=== PATIENT | male | born 1980 | race Caucasian/White ===

== ENCOUNTER 2020-06-16 07:51 | Emergency (ER) | payer BC, SELFPAY ==
[2020-06-16 08:04] VITALS: BP 122/64; PULSE 78; RESP 20; TEMP 36.6; O2SAT 99
--- NOTE | 2020-06-16 08:48 | ED.WOUNDLAC ---
HPI - Wound/Laceration General Chief Complaint: Wound/Laceration Stated Complaint: hand laceration Time Seen by Provider: 06/16/20 08:00 Source: patient and family Mode of arrival: ambulatory Limitations: no limitations History of Present Illness HPI narrative: 40-year-old with no major medical problems here with a complaint plaints of laceration to his left hand sustained half hour ago at home. Patient states that he was trying to cut a lot of wood with an ax and he accidentally hit himself. He denies any other injuries denies numbness or tingling sensation. Onset (ago): minute(s) (30) Extremity Location: Left: hand Place: home Patient tetanus UTD: No Context: accidental Associated symptoms: none Related Data Home Medications Medication Instructions Recorded Confirmed No Home Medications 06/16/20 06/16/20 Allergies Allergy/AdvReac Type Severity Reaction Status Date / Time No Known Allergies Allergy Verified 06/16/20 08:07 Review of Systems Review of Systems: All systems reviewed & are unremarkable except as noted in HPI and below Constitutional: Constitutional: Reports no additional constitutional complaints Eyes: Eyes: Reports no additional eye complaints ENT: Reports system reviewed and no additional complaints, except as documented Cardiovascular: Cardiovascular: Reports no additional cardiovascular complaints Respiratory: Respiratory: Reports no additional respiratory complaints Gastrointestinal: Gastrointestinal: Reports no additional gastrointestinal complaints Musculoskeletal: Musculoskeletal: Reports as per HPI Neurologic: Reports system reviewed and no additional complaints, except as documented PMFSH Social History Social History Gender identity (if verbalized by the patient): Male Exam Narrative: Exam Narrative: GENERAL: Well-appearing, well-nourished, and in no acute distress. HEAD: Normocephalic, atraumatic. EYES: PERRLA and EOMI.. NECK: Supple. CHEST: Clear to auscultation. No respiratory distress. HEART: Regular rate and rhythm. No murmur heard. Normal peripheral puls EXTREMITIES: Normal range of motion. No edema.Has a 4 cms lac on the dorsal aspect of the left hand between thumb and the index finger , with active bleeding , no tendon involvement and no vascular involvement .fingers have normal range of movement . SKIN: Warm, dry, no rash. NEURO: No focal deficits. Alert and oriented x3. PSYCH: Normal mood and affect. Course Vital Signs Vital signs: Vital Signs Temperature 36.6 C 06/16/20 08:04 Pulse Rate 78 06/16/20 08:04 Respiratory Rate 20 06/16/20 08:04 Blood Pressure 122/64 06/16/20 08:04 Pulse Oximetry 99 06/16/20 08:04 Temperature 36.6 C 06/16/20 08:04 Pulse Rate 78 06/16/20 08:04 Respiratory Rate 20 06/16/20 08:04 Blood Pressure 122/64 06/16/20 08:04 Pulse Oximetry 99 06/16/20 08:04 Procedures Laceration Laceration 1: Date: 06/16/20 Site: hand Side (If applicable): left Size (cm): 4 Description: linear Depth: simple, single layer Local Anesthetic: lidocaine 1% and with epi Amount of anesthesia used (mL): 10 Pre-repair: wound explored and irrigated ====== Skin Level ====== Skin layer closed with: nylon Size (cm): 4-0 Number of sutures: 12 Technique: running ====== Subcutaneous Layer ====== ====== Muscle Layer ====== ====== Tendon Layer ====== Discharge Plan Discharge Clinical Impression: Laceration Patient Disposition: Home, Self-Care Condition: Stable Instructions: Antibiotic Form, Laceration (ED) Additional Instructions: Keep the wound clean , take antibiotic sUTURES OFF 7 TO 10 DAYS Prescriptions: No Action No Home Medications RF: 0 Follow-up/Referrals: PHYSICIAN,GRADES 7 8 TUTOR [Primary Care Provider] - Hal Moreno
[2020-06-16] MEDS: TETANUS,DIPHTHERIA,AC PERTUSSIS ADULT (0.5 ML) BOOSTRIX IM (09:02)
[2020-06-16 09:24] VITALS: BP 118/88; PULSE 80; RESP 20; O2SAT 100
== END 2020-06-16 09:25 | disposition home or self-care (01) ==
PROVIDERS: Emergency Provider Family Medicine; Referring Provider Internal Medicine
DX: S61.412A Laceration without foreign body of left hand, initial encounter (principal); W27.0XXA Contact with workbench tool, initial encounter; Z23 Encounter for immunization
CPT/HCPCS: 12002; 90471; 90715; 99282